=== PATIENT | female | born 1960 | race Caucasian/White ===

== ENCOUNTER 2023-10-25 08:22 | Outpatient (OUT) | payer SELFPAY ==
--- NOTE | 2023-10-25 08:32 | US_ITS ---
[address] [address] Patient Name: VIRGIE MANCIA MRN: [id number] date: 1960 Sex: F Assigned Patient Location: RAD Current Patient Location: [facility] Accession/Order Number: [id number] Exam Date: 10/25/2023 08:34 Report Date: 10/25/2023 10:12 At the request of: DAVID HAWKINS Procedure: US venous doppler LE LT EXAM: US venous doppler LE LT HISTORY: Localized Swelling Of Left Lower Leg R22.42 COMPARISON: None. TECHNIQUE: Grayscale, color and Doppler FINDINGS: Region: Left leg Thrombus: None Flow: Normal Augmentation: Normal Compressibility: Normal US/US venous doppler LE LT IMPRESSION: No deep or superficial vein thrombus in the left leg Electronically authenticated by: BARBARA WU Date: 10/25/2023 10:12
== END 2023-10-25 08:23 | disposition home or self-care (01) ==
DX: R22.42 Localized swelling, mass and lump, left lower limb (principal)
CPT/HCPCS: 93971